=== PATIENT | male | born 1965 | race Caucasian/White ===

== ENCOUNTER 2019-08-28 14:43 | Emergency (ER) | payer SELFPAY ==
[~2019-08-28] VITALS: Ht 175.3 cm; Wt 94.5 kg
[2019-08-28 14:46] VITALS: BP 192/110; Ht 175.3 cm; Wt 94.5 kg
[2019-08-28] MEDS ORDERED: GENVOYA (14:47)
[2019-08-28] MEDS ORDERED: METOPROLOL TART25 MG PO (14:48)
[2019-08-28] MEDS ORDERED: OMEPRAZOLE20 M1 PO (14:48)
[2019-08-28] MEDS ORDERED: COZAAR50 MG PO (14:49)
[2019-08-28] MEDS ORDERED: HYDROCHLOROTH12.5 M1 PO (14:49)
[2019-08-28] MEDS ORDERED: EFFEXOR25 MG PO (14:50)
[2019-08-28] MEDS ORDERED: BUPROPION HCL75 MG PO (14:55)
[2019-08-28 15:13] LABS: BILIRUBIN NEGATIVE (NEGATIVE); GLUCOSE NEGATIVE (NEGATIVE); KETONE NEGATIVE (NEGATIVE); NITRITE NEGATIVE (NEGATIVE); SPECIFIC GRAVITY 1.015 (1.005-1.020); UROBILINOGEN NORMAL (NORMAL)
[2019-08-28 15:16] LABS: BASOPHILS 0.2 % (0-2); EOSINOPHILS 0.2 % (0-7); HEMATOCRIT 40.7 % (42.0-54.0); HEMOGLOBIN 13.2 g/dL (13.5-17.5); IMMATURE GRANULOCYTES 0.3 % (0-5); LYMPHOCYTES 7.9 % (15-50); MCH 27.6 pg (26.0-34.0); MCHC 32.4 g/dL (31.0-37.0); MEAN PLATELET VOLUME 8.4 fL (7.4-10.4); MONOCYTES 7.3 % (2-11); NEUTROPHILS 84.1 % (40-80); PLATELET COUNT 339 10x3/uL (130-400); RBC 4.79 10x6/uL (4.20-6.10); RDW 14.8 % (11.5-14.5); WBC 12.3 10x3/uL (4.8-10.8)
[2019-08-28 15:21] LABS: UDS - AMPHET POSITIVE QUAL (NEGATIVE); UDS - BARB NEGATIVE QUAL (NEGATIVE); UDS - BENZO NEGATIVE QUAL (NEGATIVE); UDS - COCAINE NEGATIVE QUAL (NEGATIVE); UDS - OPIATE NEGATIVE QUAL (NEGATIVE); UDS - PCP NEGATIVE QUAL (NEGATIVE); UDS - THC NEGATIVE QUAL (NEGATIVE)
[2019-08-28 15:36] LABS: ANION GAP 13.9 mmol/L (8-16); CALCIUM 9.1 mg/dL (8.5-10.1); CARBON DIOXIDE 28.7 mmol/L (21.0-32.0); CREATININE - SERUM 1.5 mg/dL (0.6-1.3); POTASSIUM - SERUM 3.6 mmol/L (3.5-5.1)
[2019-08-28 15:41] LABS: ALBUMIN 4.7 g/dL (3.4-5.0); BILIRUBIN - TOTAL 0.43 mg/dL (0.2-1.3); MAGNESIUM - SERUM 2.1 mg/dL (1.8-2.4); PROTEIN - SERUM 8.8 g/dL (6.4-8.2)
--- NOTE | 2019-08-28 16:40 | NUR ---
DR SINCLAIR NOTIFIED AND REVIEWED PT'S BEHAVIOR AND ASSESSMENT. PT IS LOW RISK. RESOURCES GIVEN AND HE VERBALIZES UNDERSTANDING.
== END 2019-08-28 17:03 | disposition left against medical advice (07) ==
LOC: D.ER 14:43
PROVIDERS: Family Medicine
DX: F19.10 Other psychoactive substance abuse, uncomplicated (principal); E86.0 Dehydration; I10 Essential (primary) hypertension; B20 Human immunodeficiency virus [HIV] disease